=== PATIENT | male | born 1955 | race Caucasian/White ===

== ENCOUNTER 2017-08-29 07:26 | Outpatient (CLI) | payer BC ==
[2017-08-29 13:36] LABS: ALBUMIN 4.2 g/dL (3.2-5.5); ALBUMIN/GLOBULIN RATIO 1.4 (1.0-2.2); ALKALINE PHOSPHATASE 54 IU/L (42-121); ALT ALANINE AMINOTRANSFERASE 28 IU/L (10-60); AST ASPARTATE AMINOTRANSFERASE 46 IU/L (10-42); BILIRUBIN,TOTAL 0.9 mg/dL (0.2-1.0); BUN - BLOOD UREA NITROGEN 22 mg/dL (6-20); CALCIUM 9.2 mg/dL (8.5-10.3); CARBON DIOXIDE - CO2 28 mmol/L (21-32); CHLORIDE 103 mmol/L (101-111); CHOLESTEROL 155 mg/dL; CREATININE 0.8 mg/dL (0.6-1.2); GFR - MDRD 98 (>89); GLUCOSE 90 mg/dL (70-100); HDL CHOLESTEROL 39 mg/dL; LDL CHOLESTEROL,CALCULATED 93 mg/dL; LDL/HDL RATIO 2.4 (<3.6); SODIUM 138 mmol/L (135-145); TOTAL PROTEIN 7.3 g/dL (6.7-8.2); VLDL CHOLESTEROL 23 mg/dL
== END 2017-08-29 07:27 ==
LOC: LAB.WCP 07:26
PROVIDERS: ATTEND Family Medicine
DX: Z00.00 Encounter for general adult medical examination without abnormal findings (principal); Z12.5 Encounter for screening for malignant neoplasm of prostate; Z79.899 Other long term (current) drug therapy; E78.9 Disorder of lipoprotein metabolism, unspecified; I10 Essential (primary) hypertension
CPT/HCPCS: 36415; 80053; 80061; 83721; 84153

== ENCOUNTER 2017-09-18 09:40 | Outpatient (CLI) | payer BC ==
[2017-09-19 11:11] LABS: HEPATITIS C ANTIBODY NON-REACTIVE (NON-REACTIVE)
[2017-09-19 11:12] LABS: HEPATITIS B SURFACE ANTIGEN NON-REACTIVE (NON-REACTIVE)
== END 2017-09-18 09:41 | disposition home or self-care (01) ==
LOC: LAB.WCP 09:40
PROVIDERS: ATTEND Family Medicine
DX: R74.8 Abnormal levels of other serum enzymes (principal)
CPT/HCPCS: 36415; 86317; 86803; 87340

== ENCOUNTER 2017-10-12 08:12 | Outpatient (CLI) | payer BC ==
[2017-10-12 12:39] LABS: ALBUMIN 4.1 g/dL (3.2-5.5); BILIRUBIN,DIRECT 0.1 mg/dL (0.1-0.5); TOTAL PROTEIN 7.3 g/dL (6.7-8.2)
== END 2017-10-12 08:13 ==
LOC: LAB.WCP 08:12
PROVIDERS: ATTEND Family Medicine
DX: R74.8 Abnormal levels of other serum enzymes (principal)
CPT/HCPCS: 36415; 80076

== ENCOUNTER 2018-12-24 08:00 | Outpatient (CLI) | payer BC ==
[2018-12-24 12:24] LABS: BASOPHILS # (AUTO) 0.1 10^3/uL (0.0-0.1); BASOPHILS % (AUTO) 0.9 %; EOSINOPHILS # (AUTO) 0.1 10^3/uL (0.0-0.7); HGB - HEMOGLOBIN 15.5 g/dL (14.0-18.0); LYMPHOCYTES # (AUTO) 1.7 10^3/uL (1.5-3.5); LYMPHOCYTES % (AUTO) 25.7 %; MEAN CORPUSCULAR HEMOGLOBIN 29.4 pg (27.0-31.0); MEAN CORPUSCULAR HGB CONC 33.3 g/dL (32.0-36.0); MEAN CORPUSCULAR VOLUME 88.3 fL (80.0-94.0); MEAN PLATELET VOLUME 11.1 fL (7.4-11.4); MONOCYTES # (AUTO) 0.6 10^3/uL (0.0-1.0); MONOCYTES % (AUTO) 9.2 %; NEUTROPHILS # (AUTO) 4.2 10^3/uL (1.5-6.6); NEUTROPHILS % (AUTO) 62.8 %; PLT - PLATELET COUNT 247 10^3/uL (130-450); RED BLOOD COUNT 5.28 10^6/uL (4.70-6.10); RED CELL DISTRIBUTION WIDTH 12.8 % (12.0-15.0); WHITE BLOOD COUNT 6.7 x10^3/uL (4.8-10.8)
[2018-12-24 13:15] LABS: ALBUMIN 4.3 g/dL (3.2-5.5); ALBUMIN/GLOBULIN RATIO 1.5 (1.0-2.2); ALKALINE PHOSPHATASE 58 IU/L (42-121); ALT ALANINE AMINOTRANSFERASE 24 IU/L (10-60); AST ASPARTATE AMINOTRANSFERASE 39 IU/L (10-42); BILIRUBIN,TOTAL 0.9 mg/dL (0.2-1.0); BUN - BLOOD UREA NITROGEN 21 mg/dL (6-20); CALCIUM 9.2 mg/dL (8.5-10.3); CARBON DIOXIDE - CO2 30 mmol/L (21-32); CHLORIDE 104 mmol/L (101-111); CHOL/HDL RATIO 4.9 (<5.0); CHOLESTEROL 175 mg/dL; CREATININE 0.9 mg/dL (0.6-1.2); GFR - MDRD 86 (>89); GLUCOSE 97 mg/dL (70-100); HDL CHOLESTEROL 36 mg/dL; LDL CHOLESTEROL,CALCULATED 110 mg/dL; LDL/HDL RATIO 3.1 (<3.6); SODIUM 141 mmol/L (135-145); TOTAL PROTEIN 7.2 g/dL (6.7-8.2); VLDL CHOLESTEROL 29 mg/dL
== END 2018-12-24 23:59 | disposition home or self-care (01) ==
LOC: LAB.WCP 08:00
PROVIDERS: ATTEND Family Medicine
DX: R74.8 Abnormal levels of other serum enzymes (principal); I10 Essential (primary) hypertension; E78.5 Hyperlipidemia, unspecified
CPT/HCPCS: 36415; 80053; 80061; 83721; 84443; 85025

== ENCOUNTER 2019-07-13 19:00 | Observation (INO) | payer BC ==
[2019-07-13] MEDS ORDERED: ONDANSETRON 4 MG/2 ML VIAL IVP STA (19:18)
[2019-07-13] MEDS ORDERED: HYDROmorphone 1 MG/ML CARPUJECT IVP STA ×2 (19:18→20:21)
[2019-07-13] MEDS ORDERED: SODIUM CHLORIDE 0.9% 1,000 ML IV ONE (19:18)
--- NOTE | 2019-07-13 19:22 | ED Physician Documentation ---
PD HPI ABD PAIN - Stated complaint Stated Complaint: ABD PX, NAUSEA - Chief complaint Chief Complaint: Abd Pain - History obtained from History obtained from: Patient (This is a very healthy 64-year-old gentleman with no he abdominal surgeries. He developed abdominal pain in the low abdomen after eating fast food yesterday in the midday. Since then pain is been progressive and he could not sleep last night because of it. He denies nausea but eating does make the pain worse. He had a normal bowel movement but feels like there is still a lot of lower abdominal pressure. He does not remember exactly when his last colonoscopy was, but it was "normal." I asked him if he had diverticula and he did not endorse that.) Review of Systems Ten Systems: 10 systems reviewed and negative Constitutional: reports: Chills. denies: Fever (He was not aware that he had a fever) Nose: denies: Rhinorrhea / runny nose, Foreign Body Throat: denies: Dental pain / toothache, Sore throat Cardiac: denies: Chest pain / pressure, Palpitations Respiratory: denies: Dyspnea PD PAST MEDICAL HISTORY - Past Medical History Past Medical History: Yes Cardiovascular: Hypertension ("Borderline hypertension") - Present Medications Home Medications: Ambulatory Orders Medication Instructions Recorded Confirmed Bp Medication 07/13/19 - Allergies Allergies/Adverse Reactions: Allergies Allergy/AdvReac Type Severity Reaction Status Date / Time No Known Drug Allergies Allergy Verified 07/13/19 19:08 - Social History Does the pt smoke?: No - Family History Family history: reports: Non contributory PD ED PE NORMAL - Vitals Vital signs reviewed: Yes - General General: Alert and oriented X 3, No acute distress - HEENT HEENT: PERRL, EOMI - Neck Neck: Supple, no meningeal sign, No bony TTP - Cardiac Cardiac: RRR, No murmur - Respiratory Respiratory: No respiratory distress, Clear bilaterally - Abdomen Abdomen: Normal bowel sounds, Soft, Other (Quite tender in the low abdomen, I think left a little more than right. He does have rebound tenderness. He has an umbilical hernia which is protruding but nontender and he said it is not protruding any more than normal.) - Back Back: No CVA TTP, No spinal TTP - Derm Derm: Normal color, Warm and dry - Extremities Extremities: No edema, No calf tenderness / cord - Neuro Neuro: Alert and oriented X 3, Normal speech Results - Vitals Vitals: Vital Signs - 24 hr 07/13/19 07/13/19 07/13/19 19:05 21:39 21:47 Temperature 38.4 C H 38.9 C H Heart Rate 117 H 103 H Respiratory 18 18 Rate Blood Pressure 147/82 H 135/87 H O2 Saturation 95 93 Oxygen O2 Source Room air - Labs Labs: Laboratory Tests 07/13/19 07/13/19 07/13/19 19:25 19:25 19:25 WBC 19.0 H RBC 5.39 Hgb 16.1 Hct 46.0 MCV 85.3 MCH 29.9 MCHC 35.0 RDW 12.7 Plt Count 248 MPV 10.6 Neut # (Auto) 16.7 H Lymph # (Auto) 1.0 L [place] # (Auto) 1.1 H Eos # (Auto) 0.0 Baso # (Auto) 0.1 Absolute Nucleated RBC 0.00 Nucleated RBC % 0.0 Sodium 133 L Potassium 3.4 L Chloride 98 L Carbon Dioxide 23 Anion Gap 12.0 BUN 20 Creatinine 0.9 Estimated GFR (MDRD) 85 L Glucose 171 H Lactic Acid 1.2 Calcium 9.0 Total Bilirubin 1.9 H AST 39 ALT 25 Alkaline Phosphatase 60 Total Protein 7.5 Albumin 4.4 Globulin 3.1 Albumin/Globulin Ratio 1.4 Lipase 25 - Rads (name of study) CT abdomen and pelvis Radiology: EMP read contemporaneously (Uncomplicated appendicitis. Note made of liver and kidney lesions needing follow-up with MRI. This was discussed with the patient. I also went out to the 's car in the parking lot (no visitors due to coronavirus) and she was given a copy of the CAT scan read.) PD MEDICAL DECISION MAKING - ED course ED course: 64-year-old gentleman presents with lower abdominal pain and fever of a days duration. Differential includes both appendicitis and diverticulitis. He was febrile. White count was 19,000. CT showing uncomplicated appendicitis as well as incidental findings discussed with patient and , need for follow-up on these issues was stressed. Spoke with Dr. Garcia, the on-call surgeon who will be in to see the patient. Charleen caal after discussion. Departure - Departure Disposition: ED Place in Observation Clinical Impression: Appendicitis, Liver mass, Left renal mass Condition: Stable
[2019-07-13] MEDS ORDERED: IOVERSOL 320 100 ML VIAL IVP ONE ×2 (19:30→20:56)
[2019-07-13 19:37] LABS: BASOPHILS # (AUTO) 0.1 10^3/uL (0.0-0.1); BASOPHILS % (AUTO) 0.3 %; EOSINOPHILS % (AUTO) 0.1 %; HGB - HEMOGLOBIN 16.1 g/dL (14.0-18.0); LYMPHOCYTES % (AUTO) 5.3 %; MEAN CORPUSCULAR HEMOGLOBIN 29.9 pg (27.0-31.0); MEAN CORPUSCULAR VOLUME 85.3 fL (80.0-94.0); MEAN PLATELET VOLUME 10.6 fL (7.4-11.4); MONOCYTES # (AUTO) 1.1 10^3/uL (0.0-1.0); MONOCYTES % (AUTO) 5.5 %; NEUTROPHILS # (AUTO) 16.7 10^3/uL (1.5-6.6); NEUTROPHILS % (AUTO) 88.2 %; PLT - PLATELET COUNT 248 10^3/uL (130-450); RED BLOOD COUNT 5.39 10^6/uL (4.70-6.10); RED CELL DISTRIBUTION WIDTH 12.7 % (12.0-15.0)
[2019-07-13 19:52] LABS: ALBUMIN 4.4 g/dL (3.2-5.5); ALBUMIN/GLOBULIN RATIO 1.4 (1.0-2.2); BILIRUBIN,TOTAL 1.9 mg/dL (0.2-1.0); CREATININE 0.9 mg/dL (0.6-1.2); TOTAL PROTEIN 7.5 g/dL (6.7-8.2)
--- NOTE | 2019-07-13 21:30 | CT Report ---
Reason: IV only, low abd pain Procedure Date: 07/13/2019 Accession Number: [id number] / [id number] Procedure: CT - Abdomen/Pelvis W CPT Code: Final Report FULL RESULT: EXAM: CT ABDOMEN AND PELVIS EXAM DATE: 07/13/2019 08:54 PM. CLINICAL HISTORY: IV only, low abdominal pain. COMPARISONS: None. TECHNIQUE: Routine helical CT imaging was performed through the abdomen and pelvis. IV contrast: 100 mL opti 320 AT 2 mL/Sec with 70 second delay. Low. Enteric contrast: No. Reconstructions: Coronal and sagittal. In accordance with CT protocol optimization, one or more of the following dose reduction techniques were utilized for this exam: automated exposure control, adjustment of mA and/or KV based on patient size, or use of iterative reconstructive technique. FINDINGS: ABDOMEN: Liver: There is a heterogeneous nodular appearing partly exophytic arising abnormality within the inferior portion of segment 4B measuring 1.8 x 2.3 x 2.0 cm (image 28 series 3). There are two additional subcentimeter nonspecific low-density foci within superior portion of segment 7/8 as well as within the central portion of segment 4A/B. These are difficult to characterize due to their small size. Stomach/Distal Esophagus: Small hiatal hernia. Gallbladder: No significant abnormality. Bile Ducts: No significant abnormality. Pancreas: No significant abnormality. Spleen: No significant abnormality. Kidneys: There is a low-density lesion arising quickly from the left mid kidney measuring 2.8 x 2.9 cm (image 34 series3). Internal density measures 27 HU (image 35 series 3). This is difficult to fully characterize on this exam. No kidney stone or hydronephrosis. No definite suspicious renal mass. Adrenals: No significant abnormality. Bowel: No obstruction. Average fecal residual. Mild reactive wall thickening of the terminal ileum within the right lower quadrant. Moderate descending and proximal sigmoid diverticulosis. Appendix: Appendix is dilated measuring 13 mm. There is periappendiceal stranding. Lymph Nodes: No pathologically enlarged nodes. Vasculature: Normal caliber aorta. Moderate calcific aortic atherosclerosis. Fluid: No significant free fluid. Abdominal Wall: Small fat-containing umbilical hernia. Other: No significant abnormality. PELVIS: Prostate and Seminal Vesicles: No significant abnormality. Bladder: No significant abnormality. Lymph Nodes: No pathologically enlarged nodes. Fluid: Trace free fluid in the pelvis. Other: Small bilateral fat-containing inguinal hernias. BONES: No suspicious bony lesions. LOWER CHEST: No significant consolidation or effusion. IMPRESSION: 1. Acute appendicitis without evidence of perforation or abscess. 2. There is a 2.9 x 2.8 cm low-density lesion arising from the posterior portion of the left mid kidney measuring 27 HU in density. This is indeterminate. This could be further assessed on the below recommended MRI examination. 3. Indeterminate liver nodular abnormality within the inferior portion of segment 4B, with a partly exophytic appearance. This measures 1.8 x 2.0 x 2.3 cm. This could be further assessed with a nonemergent outpatient MRI of the abdomen without and with contrast. This MRI could also assess the above described renal lesion. RADIA
[2019-07-13] MEDS ORDERED: PIPERACILLIN/TAZOBACTAM 3.375 GM in SODIUM CHLORIDE 0.9% MINIBAG 100 ML IV STA (21:37)
[2019-07-13] MEDS ORDERED: ACETAMINOPHEN 325 MG TABLET PO STA (21:49)
[2019-07-13] MEDS ORDERED: ACETAMINOPHEN 325 MG TABLET PO PRN (21:59)
[2019-07-13] MEDS ORDERED: SODIUM CHLORIDE FLUSH 0.9% 10 ML SYRINGE IVP PRN ×2 (21:59)
--- NOTE | 2019-07-13 22:49 | CONSULTATION NOTE ---
Referring Provider Name of Referring Provider:: MD Rochelle (ED) Consult Date: 07/13/19 Chief Complaint - Chief Complaint Chief Complaint: abd pain History of Present Illness - History of Present Illness HPI Comment/Other: Pleasant 64yo M in good health presents with day and a half of increasing abdominal pain. Started around his umbilicus yesterday afternoon and has worsened. No significant nausea, no dysuria. He has little appetite and has not taken in much water so has not urinated much. He is febrile and has a leukocytosis on admission. CT shows appendicitis plus incidental findings. Exam is consistent with appendicitis; also noted is a small umbilical hernia. He has had no previous abd surgeries. He had achilles tendon surgery this past fall and had no issues with anesthesia or bleeding. No SOB walking up a flight of stairs. No known issues with narcotics. History - Past Medical History Cardiovascular: reports: Hypertension ("Borderline hypertension") - Past Surgical History Ortho: reports: Other (achilles tendon (Dec 2018)) Meds/Allgy - Home Medications Home Medications: Ambulatory Orders Medication Instructions Recorded Confirmed Bp Medication 07/13/19 - Allergies Allergies/Adverse Reactions: Allergies Allergy/AdvReac Type Severity Reaction Status Date / Time No Known Drug Allergies Allergy Verified 07/13/19 19:08 Review of Systems - Constitutional Constitutional: reports: Fever, Malaise, Poor appetite - Respiratory Respiratory: denies: SOB at rest, SOB with exertion - Gastrointestinal Gastrointestinal: reports: Abdominal pain. denies: Diarrhea, Nausea, Vomiting - Genitourinary Genitourinary: denies: Dysuria - All Other Systems All Other Systems: reports: Reviewed and negative Exam - Vital Signs Reviewed Vital Signs: Yes Vital Signs: Vital Signs x48h Temp Pulse Resp BP Pulse Ox 07/13/19 21:47 38.9 C H 07/13/19 21:39 103 H 18 135/87 H 93 07/13/19 19:05 38.4 C H 117 H 18 147/82 H 95 - Physical Exam Comments/Other: AAO, NAD, male of healthy weight EOMI, MMM, no scleral icterus unlabored RA soft, non-distended, moderate ttp RLQ and suprapubic area, small fat-containing umbilical hernia MAEW visible skin warm and dry Conclusion and Plan - Lab Results Laboratory Results 07/13/19 19:25: Lactic Acid 1.2 07/13/19 19:25: Sodium 133 L, Potassium 3.4 L, Chloride 98 L, Carbon Dioxide 23, Anion Gap 12.0, BUN 20, Creatinine 0.9, Estimated GFR (MDRD) 85 L, Glucose 171 H, Calcium 9.0, Total Bilirubin 1.9 H, AST 39, ALT 25, Alkaline Phosphatase 60, Total Protein 7.5, Albumin 4.4, Globulin 3.1, Albumin/Globulin Ratio 1.4, Lipase 25 07/13/19 19:25: WBC 19.0 H, RBC 5.39, Hgb 16.1, Hct 46.0, MCV 85.3, MCH 29.9, MCHC 35.0, RDW 12.7, Plt Count 248, MPV 10.6, Neut # (Auto) 16.7 H, Lymph # (Auto) 1.0 L, [place] # (Auto) 1.1 H, Eos # (Auto) 0.0, Baso # (Auto) 0.1, Absolute Nucleated RBC 0.00, Nucleated RBC % 0.0 - Diagnostic Imaging Results Diagnostic Imaging Results: positive: Final report reviewed, Read contemporaneously - Diagnosis Diagnosis: appendicitis - Plan Plan: - plan for OR in AM --> all R/B/A discussed and pt wishes to proceed --> also discussed repairing his small umbilical hernia primarily and he would like this done - IV Zosyn - CLD now, NPO at midnight for procedure - MIVFs - prn antiemetics and pain meds - antipyretic prn for ongoing fevers - Hyperbilirubinemia: CMP in AM to follow, may be dehydration/ biliary stasis related - Pt has incidental findings of hepatic and renal cysts on his CT and have counseled him to FU with his PCP for this
[2019-07-13] MEDS: HYDROmorphone 0.5 MG/0.5 ML SYRINGE IVP PRN (23:05)
[2019-07-13] MEDS: SODIUM CHLORIDE 0.9% 1,000 ML IV SCH (23:15)
[2019-07-13 23:33] LABS: BILIRUBIN,URINE NEGATIVE (NEGATIVE); GLUCOSE, URINE (UA) NEGATIVE (NEGATIVE); KETONES,URINE (UA) NEGATIVE (NEGATIVE); LEUKOCYTE ESTERASE, URINE NEGATIVE (NEGATIVE); NITRITE,URINE NEGATIVE (NEGATIVE); OCCULT BLOOD,URINE SMALL (NEGATIVE); PROTEIN,URINE NEGATIVE (NEGATIVE); UROBILINOGEN,URINE 0.2 (NORMAL) E.U./dL (NORMAL)
[2019-07-13 23:34] LABS: CLARITY,URINE CLEAR (CLEAR)
[2019-07-13 23:44] LABS: BACTERIA,URINE None Seen /HPF (None Seen); RBC,URINE 0-5 /HPF (0-5); SQUAMOUS EPITHELIAL CELL,UR RARE Squamous (<= Few)
[2019-07-14] MEDS: IBUPROFEN 600 MG TABLET PO SCH ×3 (00:30→13:48)
[2019-07-14] MEDS ORDERED: SODIUM CHLORIDE FLUSH 0.9% 10 ML SYRINGE IVP SCH (01:00)
[2019-07-14] MEDS: SODIUM CHLORIDE FLUSH 0.9% 10 ML SYRINGE IVP SCH ×2 (02:15→08:00)
[2019-07-14] MEDS: PIPERACILLIN/TAZOBACTAM 3.375 GM in SODIUM CHLORIDE 0.9% MINIBAG 100 ML IV SCH ×2 (02:15→09:07)
[2019-07-14] MEDS: HYDROmorphone 0.5 MG/0.5 ML SYRINGE IVP PRN ×2 (02:15→05:02)
[2019-07-14 06:23] LABS: ALBUMIN 3.6 g/dL (3.2-5.5); ALBUMIN/GLOBULIN RATIO 1.4 (1.0-2.2); BILIRUBIN,TOTAL 1.6 mg/dL (0.2-1.0); CALCIUM 8.1 mg/dL (8.5-10.3); CREATININE 0.9 mg/dL (0.6-1.2); TOTAL PROTEIN 6.1 g/dL (6.7-8.2)
--- NOTE | 2019-07-14 07:24 | PHARMACY PROGRESS NOTE ---
- Best Possible Medication History Admit Date and Time: 07/13/19 3955 Processed by: Pharmacy Medication History completed: Yes Patient Interview: Completed Secondary Source(s): Physician records, Pharmacy records, Insurance records As the person ultimately responsible for medication therapy, providers are able to order a medication from an existing home medication list in [facility] via the "Reconcile Routine" prior to Confirmation of that medication by customer support executive. Such practice is discouraged except when the physician, in their clinical judgment, deems that a medical need exists for a medication without regard to previous use.
--- NOTE | 2019-07-14 08:26 | ANESTHESIA ---
Pre-Anesthesia VS, & Labs - Diagnosis Diagnosis appendicitis umbilical hernia - Procedure laparoscopic appendectomy, umbilical hernia repair Vital Signs: Temp Pulse Resp BP Pulse Ox 37.1 C 86 18 131/76 H 93 07/14/19 05:00 07/14/19 05:00 07/14/19 05:00 07/14/19 05:00 07/14/19 05:00 Height 5 ft 11 in Weight (kg) 88 kg Body Mass Index 27.0 - Lab Results Current Lab Results: Laboratory Tests 07/14/19 05:45: Sodium 134 L, Potassium 3.4 L, Chloride 100 L, Carbon Dioxide 28, Anion Gap 6.0, BUN 19, Creatinine 0.9, Estimated GFR (MDRD) 85 L, Glucose 120 H, Calcium 8.1 L, Total Bilirubin 1.6 H, AST 33, ALT 20, Alkaline Phosphatase 52, Total Protein 6.1 L, Albumin 3.6, Globulin 2.5, Albumin/Globulin Ratio 1.4 07/13/19 19:25: Lactic Acid 1.2 07/13/19 19:25: Sodium 133 L, Potassium 3.4 L, Chloride 98 L, Carbon Dioxide 23, Anion Gap 12.0, BUN 20, Creatinine 0.9, Estimated GFR (MDRD) 85 L, Glucose 171 H , Calcium 9.0, Total Bilirubin 1.9 H, AST 39, ALT 25, Alkaline Phosphatase 60, Total Protein 7.5, Albumin 4.4, Globulin 3.1, Albumin/Globulin Ratio 1.4, Lipase 25 07/13/19 19:25: WBC 19.0 H, RBC 5.39, Hgb 16.1, Hct 46.0, MCV 85.3, MCH 29.9, MCHC 35.0, RDW 12.7, Plt Count 248, MPV 10.6, Neut # (Auto) 16.7 H, Lymph # (Auto) 1.0 L, [place] # (Auto) 1.1 H, Eos # (Auto) 0.0, Baso # (Auto) 0.1, Absolute Nucleated RBC 0.00, Nucleated RBC % 0.0 Lab results reviewed: Yes Fish Bones: 07/13/19 19:25 07/14/19 05:45 Home Medications and Allergies Home Medications: Ambulatory Orders Losartan/Hydrochlorothiazide [Losartan-Hctz 100-12.5 mg Tab] 1 tab PO DAILY 07/14/19 Sildenafil Citrate 50 mg PO PRN PRN 07/14/19 Active Medications Acetaminophen (Tylenol) 325 mg PO Q4HR PRN PRN Reason: Pain or Fever > 38C (100.4F) Hydromorphone HCl (Dilaudid Inj Syringe) 0.5 mg IVP Q2H PRN PRN Reason: PAIN Last Admin: 07/14/19 05:02 Dose: 0.5 mg Piperacillin Sod/Tazobactam (Sod 3.375 gm/ Sodium Chloride) 100 mls @ 25 mls/hr IV Q8H [facility] Last Infusion: 07/14/19 06:20 Dose: Infused Sodium Chloride (Normal Saline 0.9%) 1,000 mls @ 100 mls/hr IV .Q10H [facility] Last Admin: 07/13/19 23:15 Dose: 100 mls/hr Ibuprofen (Motrin) 600 mg PO Q6HR [facility] Last Admin: 07/14/19 07:02 Dose: Not Given Sodium Chloride (Normal Saline Flush 0.9%) 10 ml IVP 0100,0900,1700 [facility] Last Admin: 07/14/19 08:00 Dose: Not Given Sodium Chloride (Normal Saline Flush 0.9%) 10 ml IVP PRN PRN PRN Reason: NEEDED PER PROVIDER ORDERS Last Admin: 07/13/19 23:08 Dose: 10 ml Losartan/Hydrochlorothiazide [Losartan-Hctz 100-12.5 mg Tab] 1 tab PO DAILY 07/14/19 Sildenafil Citrate 50 mg PO PRN PRN 07/14/19 Allergies/Adverse Reactions: Allergies Allergy/AdvReac Type Severity Reaction Status Date / Time No Known Drug Allergies Allergy Verified 07/13/19 19:08 Anes History & Medical History - Anesthetic History Anesthesia Complications: reports: No previous complications Family history of Anesthesia Complications: Denies Family history of Malignant Hyperthermia: Denies - Medical History Cardiovascular: reports: Hypertension Pulmonary: reports: None Urinary: reports: None, Other (ED) Neuro: reports: None Musculoskeletal: reports: None Endocrine/Autoimmune: reports: None Blood Disorders: reports: None Skin: reports: None Smoking Status: Never smoker - Surgical History Orthopedic: Other Exam General: Alert, Oriented x3, Cooperative Dental: WNL Mouth Opening: Greater than 4 Fingerbreadths Neck Mobility: Normal Mallampati classification: I Thyromental Distance: greater than 6 cm Respiratory: Lungs clear Cardiovascular: Regular rate Plan Anesthesia Type: General Consent for Procedure(s) Verified and Reviewed: Yes Code Status: Attempt Resuscitation ASA classification: 2-Mild systemic disease Is this case an emergency?: Yes
[2019-07-14] MEDS ORDERED: LIDOCAINE 1%-EPI 1:100000 20 ML MDV ONE (08:46)
[2019-07-14] MEDS ORDERED: BUPIVACAINE 0.5% PF 30 ML VIAL ONE (08:47)
--- NOTE | 2019-07-14 08:50 | PROVIDER PROGRESS NOTE ---
Subjective - General Admit Date: 07/13/19 - Other Other Information/Narrative: OR today for surgery. No issues overnight. Objective - Patient Data Reviewed Vital Signs: Yes Vital Signs: Vital Signs x48h Temp Pulse Resp BP Pulse Ox 07/14/19 08:39 37.4 C 89 18 120/69 94 07/14/19 05:00 37.1 C 86 18 131/76 H 93 Weight: Weight 07/12/19 07/13/19 07/14/19 23:59 23:59 23:59 Weight (kg) 88 kg Intake & Output: Intake and Output Totals x24h 07/12/19 07/13/19 07/14/19 23:59 23:59 23:59 Intake Total 1100 100 Balance 1100 100 - Lab Results Lab Results: 07/13/19 19:25 07/14/19 05:45 Other Lab Results: Lab Results x24hrs 07/14/19 07/13/19 07/13/19 Range/Units 05:45 23:00 19:25 WBC (4.8-10.8) x10^3/uL RBC (4.70-6.10) 10^6/uL Hgb (14.0-18.0) g/dL Hct (42.0-52.0) % MCV (80.0-94.0) fL MCH (27.0-31.0) pg MCHC (32.0-36.0) g/dL RDW (12.0-15.0) % Plt Count (130-450) 10^3/uL MPV (7.4-11.4) fL Neut # (Auto) (1.5-6.6) 10^3/uL Lymph # (Auto) (1.5-3.5) 10^3/uL [place] # (Auto) (0.0-1.0) 10^3/uL Eos # (Auto) (0.0-0.7) 10^3/uL Baso # (Auto) (0.0-0.1) 10^3/uL Absolute Nucleated RBC x10^3/uL Nucleated RBC % /100WBC Sodium 134 L (135-145) mmol/L Potassium 3.4 L (3.5-5.0) mmol/L Chloride 100 L (101-111) mmol/L Carbon Dioxide 28 (21-32) mmol/L Anion Gap 6.0 (6-13) BUN 19 (6-20) mg/dL Creatinine 0.9 (0.6-1.2) mg/dL Estimated GFR (MDRD) 85 L (>89) Glucose 120 H (70-100) mg/dL Lactic Acid 1.2 (0.5-2.2) mmol/L Calcium 8.1 L (8.5-10.3) mg/dL Total Bilirubin 1.6 H (0.2-1.0) mg/dL AST 33 (10-42) IU/L ALT 20 (10-60) IU/L Alkaline Phosphatase 52 (42-121) IU/L Total Protein 6.1 L (6.7-8.2) g/dL Albumin 3.6 (3.2-5.5) g/dL Globulin 2.5 (2.1-4.2) g/dL Albumin/Globulin Ratio 1.4 (1.0-2.2) Lipase (22-51) U/L Urine Color YELLOW Urine Clarity CLEAR (CLEAR) Urine pH 5.0 (5.0-7.5) PH Ur Specific [place] 1.010 (1.002-1.030) Urine Protein NEGATIVE (NEGATIVE) mg/dL Urine Glucose (UA) NEGATIVE (NEGATIVE) mg/dL Urine Ketones NEGATIVE (NEGATIVE) mg/dL Urine Occult Blood SMALL H (NEGATIVE) Urine Nitrite NEGATIVE (NEGATIVE) Urine Bilirubin NEGATIVE (NEGATIVE) Urine Urobilinogen 0.2 (NORMAL) (NORMAL) E.U./dL Ur Leukocyte Esterase NEGATIVE (NEGATIVE) Urine RBC 0-5 (0-5) /HPF Urine WBC 0-3 (0-3) /HPF Ur Squamous Epith Cells RARE Squamous (<= Few) Urine Bacteria None Seen (None Seen) /HPF Ur Microscopic Review INDICATED Urine Culture Comments NOT INDICATED 07/13/19 07/13/19 Range/Units 19:25 19:25 WBC 19.0 H (4.8-10.8) x10^3/uL RBC 5.39 (4.70-6.10) 10^6/uL Hgb 16.1 (14.0-18.0) g/dL Hct 46.0 (42.0-52.0) % MCV 85.3 (80.0-94.0) fL MCH 29.9 (27.0-31.0) pg MCHC 35.0 (32.0-36.0) g/dL RDW 12.7 (12.0-15.0) % Plt Count 248 (130-450) 10^3/uL MPV 10.6 (7.4-11.4) fL Neut # (Auto) 16.7 H (1.5-6.6) 10^3/uL Lymph # (Auto) 1.0 L (1.5-3.5) 10^3/uL [place] # (Auto) 1.1 H (0.0-1.0) 10^3/uL Eos # (Auto) 0.0 (0.0-0.7) 10^3/uL Baso # (Auto) 0.1 (0.0-0.1) 10^3/uL Absolute Nucleated RBC 0.00 x10^3/uL Nucleated RBC % 0.0 /100WBC Sodium 133 L (135-145) mmol/L Potassium 3.4 L (3.5-5.0) mmol/L Chloride 98 L (101-111) mmol/L Carbon Dioxide 23 (21-32) mmol/L Anion Gap 12.0 (6-13) BUN 20 (6-20) mg/dL Creatinine 0.9 (0.6-1.2) mg/dL Estimated GFR (MDRD) 85 L (>89) Glucose 171 H (70-100) mg/dL Lactic Acid (0.5-2.2) mmol/L Calcium 9.0 (8.5-10.3) mg/dL Total Bilirubin 1.9 H (0.2-1.0) mg/dL AST 39 (10-42) IU/L ALT 25 (10-60) IU/L Alkaline Phosphatase 60 (42-121) IU/L Total Protein 7.5 (6.7-8.2) g/dL Albumin 4.4 (3.2-5.5) g/dL Globulin 3.1 (2.1-4.2) g/dL Albumin/Globulin Ratio 1.4 (1.0-2.2) Lipase 25 (22-51) U/L Urine Color Urine Clarity (CLEAR) Urine pH (5.0-7.5) PH Ur Specific [place] (1.002-1.030) Urine Protein (NEGATIVE) mg/dL Urine Glucose (UA) (NEGATIVE) mg/dL Urine Ketones (NEGATIVE) mg/dL Urine Occult Blood (NEGATIVE) Urine Nitrite (NEGATIVE) Urine Bilirubin (NEGATIVE) Urine Urobilinogen (NORMAL) E.U./dL Ur Leukocyte Esterase (NEGATIVE) Urine RBC (0-5) /HPF Urine WBC (0-3) /HPF Ur Squamous Epith Cells (<= Few) Urine Bacteria (None Seen) /HPF Ur Microscopic Review Urine Culture Comments - Current Medications Current Medications: Current Medications Generic Name Dose Route Start Last Admin Trade Name Freq PRN Reason Stop Dose Admin Hydromorphone HCl 0.5 mg 07/13/19 21:59 07/14/19 05:02 Dilaudid Inj Syringe IVP 0.5 mg Q2H PRN Administration PAIN Piperacillin Sod/Tazobactam 100 mls @ 25 mls/hr 07/14/19 02:00 07/14/19 06:20 Sod 3.375 gm/ Sodium Chloride IV Infused Q8H SHERRY Infusion Sodium Chloride 1,000 mls @ 100 mls/hr 07/13/19 22:00 07/13/19 23:15 Normal Saline 0.9% IV 100 mls/hr .Q10H SHERRY Administration Ibuprofen 600 mg 07/14/19 00:00 07/14/19 07:02 Motrin PO Not Given Q6HR SHERRY Sodium Chloride 10 ml 07/14/19 01:00 07/14/19 08:00 Normal Saline Flush 0.9% IVP Not Given 0100,0900,1700 SHERRY Sodium Chloride 10 ml 07/13/19 21:59 07/13/19 23:08 Normal Saline Flush 0.9% IVP 10 ml PRN PRN Administration NEEDED PER PROVIDER ORDERS - Physical Exam Comments/Other: AAO, NAD unlabored RA MAEW Impression/Plan - Problem List Problem List: - OR today for lap appendectomy --> home later if doing well and no perforation or complicating factors intra-op - TB down but still above normal; no CT, exam, or history suggestion of biliary issues --> check as outpt then workup if not normalized - will send CT to PCP to review and plan follow up imaging/ workup - precautions reviewed for post op care
[2019-07-14] MEDS ORDERED: KETOROLAC 30 MG/ML VIAL IVP ONE (09:04)
[2019-07-14] MEDS ORDERED: GLYCOPYRROLATE 1 MG/5 ML VIAL IVP ONE (09:04)
[2019-07-14] MEDS ORDERED: NEOSTIGMINE 1 MG/1 ML 10 ML MDV IVP ONE (09:04)
[2019-07-14] MEDS ORDERED: ONDANSETRON 4 MG/2 ML VIAL IVP ONE (09:04)
[2019-07-14] MEDS ORDERED: PROPOFOL 200 MG/20 ML VIAL IVP ONE ×2 (09:04)
[2019-07-14] MEDS ORDERED: ROCURONIUM 50 MG/5 ML VIAL IVP ONE (09:04)
[2019-07-14] MEDS ORDERED: fentaNYL 250 MCG/5 ML VIAL IVP ONE (09:04)
[2019-07-14] MEDS ORDERED: DEXAMETHASONE 4 MG/ML VIAL IVP ONE (09:04)
[2019-07-14] MEDS ORDERED: MIDAZOLAM 2 MG/2 ML VIAL IVP ONE (09:04)
[2019-07-14] MEDS ORDERED: LIDOCAINE 1%-EPI 1:100000 30 ML MDV SUBQ ONE ×2 (10:00)
[2019-07-14] MEDS ORDERED: BUPIVACAINE 0.5% PF 30 ML VIAL SUBQ ONE ×2 (10:00)
[2019-07-14] MEDS ORDERED: LACTATED RINGERS 1,000 ML IV ONE ×2 (10:01→11:28)
[2019-07-14] MEDS ORDERED: oxyCODONE 5 MG TABLET PO PRN (11:18)
[2019-07-14] MEDS ORDERED: ONDANSETRON 4 MG/2 ML VIAL IVP PRN (11:18)
[2019-07-14] MEDS ORDERED: HYDROmorphone 0.5 MG/0.5 ML SYRINGE IVP PRN (11:18)
--- NOTE | 2019-07-14 11:26 | OPERATIVE REPORT ---
Operative Report - General Admit Date: 07/13/19 Pre-Op Diagnosis: 1. Appendicitis 2. Umbilical Hernia Procedure Performed: 1. Laparoscopic Lysis of Adhesions 2. Laparoscopic Appendectomy and partial Cecectomy 3. Primary Repair of Umbilical Hernia Post Op Diagnosis: same - Procedure Note Primary Surgeon: MD Gurpreet Anesthesia Provider: Lisa Kent CRNA Anesthesia Technique: General ET tube Pathology: 1. umbilical hernia contents 2. appendix 3. partial cecum Estimated Blood Loss (mL): 5 Indications: 64yo M with appendicitis, pain for 1.5 days prior to admission. Has an incidental umbilical hernia. Plan for surgery after discussion of all risks, benefits, and alternatives. He wishes to proceed. Findings: 1. inflamed appendix, minor purulence but no tino perforation; surrounding adhesions of appendix and cecum to abdominal wall 2. concern for superficial thermal injury during lysis of adhesions so small area partial cecectomy to prevent further breakdown of tissue 3. protruding liver mass (2-3cm) consistent with findings of CT 4. 1cm fat-containing umbilical hernia Complications: concern for thermal injury to cecum during PAXTON so stapled partial cecectomy performed - Other Other Information/Narrative: The patient was taken to the operating room and placed on the operating table in supine position. The abdomen was prepped and draped in sterile fashion and a timeout performed with the team present. Using a 15 blade scalpel after infiltration with local anesthesia, a subumbilical curvilinear incision was made and carried down to the fascia with blunt dissection. The umbilical stalk is bluntly cleared circumferentially with a shlomo clamp and the base exposed and excised to open into the hernia. The hernia is fully exposed and the sac containing fat is widely opened. The sac and contents are removed with cautery and the fascia cleared of sac circumferentially. Stay sutures of 0-Ethibond were placed on either side and the solorio trocar introduced. Once confirmed to be within the peritoneum, the abdomen was insufflated with air. Diagnostic laparoscopy showed no injury from initial trocar placement. Under direct vision and after infiltration with local anesthesia, an additional 5 mm trocar was then placed in the midline just above the pubic hairline and a 5 mm trocar was then placed in the left lower quadrant. The patient was then placed in left side down and in Trendelenberg position. The small bowel was retracted to the left side of the patient. The appendix was identified at the base of the cecum and had no perforation but some purulence was noted along the distal end and mesoappendix. This was grasped with a blunt grasper and a clear base was revealed. However, adhesions tented the cecum and part of the appendix to the abdominal wall so these were carefully taken down with cauterized scissors. A focal area of the cecum had a superficial thermal injury which was minimal but concern for possible further breakdown indicated repair. Using a [place] dissector, a window was made between the mesoappendix and the appendix itself. Using an Endo EVER stapler with a tissue load, the appendix was transected out at the base. Using a vascular load, the mesoappendix was then transected with the Endo EVER stapler as well. This required removing some retroperitoneal attachments of the mesoappendix with cautery. The staple lines were noted to be intact with no evidence of leakage and minimal focal bleeding. A second tissue load was used to divide and remove the small area with cecal injury. The appendix and partial cecum were placed into an EndoCatch retrieval bag and removed through the 12 mm port without any difficulty. The RLQ and pelvis were thoroughly irrigated and suctioned free of fluid. The minimal oozing at the staple line had stopped. The midline incision was closed with the stay sutures previously placed. The remainder of the local anesthesia was injected over each of the fascial incision sites. The secondary trocars were then removed. The abdomen was allowed to desufflate fully. The skin incisions were then closed using 4-0 Monocryl in an interrupted subcuticular fashion with an additional 3-0 vicryl used to re-attach the umbilical stalk. All counts were correct at the end of the procedure. The abdomen was cleaned and dried. Steri strips were placed over the incisions and a pressure dressing applied to the umbilical incision. The patient was awakened and taken to postanesthesia care unit in stable condition.
[2019-07-14] MEDS: SODIUM CHLORIDE 0.9% 1,000 ML IV SCH (13:05)
[2019-07-14 17:48] VITALS: BP 142/76
== END 2019-07-14 17:55 | disposition home or self-care (01) ==
LOC: ED 19:00 → MS2 21:59
PROVIDERS: ADMIT Surgery; ATTEND Surgery
PROC: 0DTJ4ZZ Resection of Appendix, Percutaneous Endoscopic Approach (ICD-10-PCS; principal; 2019-07-14 09:00)
DX: K35.891 Other acute appendicitis without perforation, with gangrene (principal); K42.9 Umbilical hernia without obstruction or gangrene; K66.0 Peritoneal adhesions (postprocedural) (postinfection); I10 Essential (primary) hypertension; R17 Unspecified jaundice; K76.89 Other specified diseases of liver; N28.1 Cyst of kidney, acquired; Z79.899 Other long term (current) drug therapy
CPT/HCPCS: 36415; 44970; 74177; 80053; 81001; 83605; 83690; 85025; 87040; 96361; 96374; 96375; 96376; 99285; A9270; G0378; J1170; J3010; J7120; Q9967; 81003; 87086

== ENCOUNTER 2019-09-19 14:43 | Outpatient (CLI) | payer BC ==
[2019-09-19] MEDS ORDERED: GADOBUTROL 10 MMOL/10 ML VIAL ONE (15:13)
[2019-09-19] MEDS ORDERED: GADOBUTROL 10 MMOL/10 ML VIAL IVP ONE (16:16)
--- NOTE | 2019-09-19 17:38 | MRI Report ---
PROCEDURE: Abdomen W/WO INDICATIONS: Hepatic and renal cysts seen on prior CT. CONTRAST: IV CONTRAST: Gadavist ml: 10 TECHNIQUE: Axial T2, axial T1, and coronal T1 obtained through the abdomen centered through the kidneys. Dynamic coronal ultra fast GE during the administration of contrast; post-contrast axial T1 with fat saturat ion also performed through the kidneys. Diffusion weighted imaging and ADC also performed. COMPARISON: CT abdomen pelvis 07/13/2019. FINDINGS: Image quality: There is motion artifact limiting evaluation. Lung bases: No definite basal pleural effusions. Heart size is normal. Kidneys: The kidneys demonstrate no hydronephrosis. There is an exophytic cyst extending posteriorly from the left kidney measuring up to 3.2 x 2.6 x 2.1 cm. No evidence of internal enhancement identifi ed following contrast administration. Solid organs: Limited evaluation of the liver due to incomplete inclusion on the noncontrast and axia l images demonstrates a septated cyst anteriorly in segment 5 of the right hepatic lobe, measuring up to 1.7 cm. The gallbladder appears within normal limits without gallstones. No biliary ductal dilata tion. No pancreatic duct dilatation. No peripancreatic edema or fluid collections. No adrenal nodules . The spleen is normal in size. Nodes and vessels: No retroperitoneal or mesenteric adenopathy by size criteria. Aorta and inferior vena cava are normal in size. Bowel and peritoneum: Visualized bowel loops are normal in caliber. No free fluid. Bones and soft tissues: No ventral hernias. Bone marrow is normal in overall signal. IMPRESSION: 1. Left renal cyst and right hepatic cyst redemonstrated without evidence of internal enhancement. Reviewed by: Estevan Meneses MD on 09/19/2019 5:36 PM PDT Approved by: Estevan Meneses MD on 09/19/2019 5:36 PM PDT Station ID: [id number]
== END 2019-09-19 14:44 | disposition home or self-care (01) ==
LOC: DI 14:43
PROVIDERS: ATTEND Family Medicine
DX: K76.89 Other specified diseases of liver (principal); N28.1 Cyst of kidney, acquired
CPT/HCPCS: 74183; A9585

== ENCOUNTER 2020-10-17 09:13 | Outpatient (CLI) | payer BC ==
[2020-10-17 13:42] LABS: BASOPHILS # (AUTO) 0.1 10^3/uL (0.0-0.1); BASOPHILS % (AUTO) 0.7 %; EOSINOPHILS # (AUTO) 0.1 10^3/uL (0.0-0.7); EOSINOPHILS % (AUTO) 1.5 %; HCT - HEMATOCRIT 49.3 % (42.0-52.0); HGB - HEMOGLOBIN 17.1 g/dL (14.0-18.0); LYMPHOCYTES % (AUTO) 28.6 %; MEAN CORPUSCULAR HEMOGLOBIN 30.7 pg (27.0-31.0); MEAN CORPUSCULAR HGB CONC 34.7 g/dL (32.0-36.0); MEAN CORPUSCULAR VOLUME 88.5 fL (80.0-94.0); MEAN PLATELET VOLUME 10.8 fL (7.4-11.4); MONOCYTES # (AUTO) 0.6 10^3/uL (0.0-1.0); MONOCYTES % (AUTO) 8.9 %; NEUTROPHILS # (AUTO) 4.2 10^3/uL (1.5-6.6); NEUTROPHILS % (AUTO) 60.2 %; PLT - PLATELET COUNT 258 10^3/uL (130-450); RED BLOOD COUNT 5.57 10^6/uL (4.70-6.10); RED CELL DISTRIBUTION WIDTH 12.7 % (12.0-15.0); WHITE BLOOD COUNT 6.9 x10^3/uL (4.8-10.8)
[2020-10-17 13:54] LABS: ESTIMATED AVERAGE GLUCOSE 117 mg/dL (70-100); HEMOGLOBIN A1c% 5.7 % (4.27-6.07)
[2020-10-17 14:06] LABS: THYROID STIMULATING HORMONE 0.41 uIU/mL (0.34-5.60)
[2020-10-17 14:47] LABS: ALBUMIN 4.8 g/dL (3.2-5.5); ALBUMIN/GLOBULIN RATIO 1.8 (1.0-2.2); ALKALINE PHOSPHATASE 65 IU/L (42-121); ALT ALANINE AMINOTRANSFERASE 22 IU/L (10-60); AST ASPARTATE AMINOTRANSFERASE 38 IU/L (10-42); BILIRUBIN,TOTAL 1.2 mg/dL (0.2-1.0); BUN - BLOOD UREA NITROGEN 22 mg/dL (6-20); CALCIUM 9.5 mg/dL (8.5-10.3); CARBON DIOXIDE - CO2 29 mmol/L (21-32); CHLORIDE 103 mmol/L (101-111); CHOLESTEROL 186 mg/dL; CREATININE 0.9 mg/dL (0.6-1.2); GFR - MDRD 85 (>89); GLUCOSE 95 mg/dL (70-100); HDL CHOLESTEROL 37 mg/dL; LDL CHOLESTEROL,CALCULATED 122 mg/dL; LDL/HDL RATIO 3.3 (<3.6); POTASSIUM 4.2 mmol/L (3.5-5.0); SODIUM 139 mmol/L (135-145); TOTAL PROTEIN 7.4 g/dL (6.7-8.2); TRIGLYCERIDES 137 mg/dL; VLDL CHOLESTEROL 27 mg/dL
== END 2020-10-17 09:14 | disposition home or self-care (01) ==
LOC: LAB.N 09:13
PROVIDERS: ATTEND Internal Medicine
DX: I10 Essential (primary) hypertension (principal); R73.01 Impaired fasting glucose; Z12.5 Encounter for screening for malignant neoplasm of prostate; E78.5 Hyperlipidemia, unspecified
CPT/HCPCS: 36415; 80053; 80061; 83036; 83721; 84153; 84443; 85025

== ENCOUNTER 2021-02-01 08:52 | Day surgery (SDC) | payer BC ==
[2021-02-01] MEDS ORDERED: LACTATED RINGERS 1,000 ML IV ONE (09:05)
--- NOTE | 2021-02-01 09:42 | ANESTHESIA ---
Pre-Anesthesia VS, & Labs - Diagnosis screening - Procedure colonoscopy Vital Signs: Temp Pulse Resp BP Pulse Ox 37.0 C 85 19 146/92 H 94 02/01/21 09:12 02/01/21 09:12 02/01/21 09:12 02/01/21 09:12 02/01/21 09:12 Height: 5 ft 11 in Weight (kg): 89.7 kg Body Mass Index: 27.6 BMI Classification: Overweight - NPO >8 hours - Lab Results Lab results reviewed: Yes Home Medications and Allergies Home Medications: Ambulatory Orders Metoprolol Succinate [Toprol Xl] 1 tab ORAL DAILY 01/29/21 Losartan/Hydrochlorothiazide [Losartan-Hctz 100-12.5 mg Tab] 1 tab PO DAILY 07/14/19 Sildenafil Citrate 50 mg PO PRN PRN 07/14/19 Metoprolol Succinate [Toprol Xl] 1 tab ORAL DAILY 01/29/21 Allergies/Adverse Reactions: Allergies Allergy/AdvReac Type Severity Reaction Status Date / Time No Known Drug Allergies Allergy Verified 07/13/19 19:08 Anes History & Medical History - Anesthetic History Anesthesia Complications: reports: No previous complications - Medical History Cardiovascular: reports: Hypertension Pulmonary: reports: None Gastrointestinal: reports: None Urinary: reports: None, Other Neuro: reports: None Musculoskeletal: reports: None Endocrine/Autoimmune: reports: None Blood Disorders: reports: None Skin: reports: None Smoking Status: Never smoker - Surgical History General: reports: Appendectomy, Colonoscopy Orthopedic: reports: Other Exam General: Alert, Oriented x3, Cooperative, No acute distress Dental: WNL Mouth Openin Fingerbreadth Neck Mobility: Normal Mallampati classification: I Respiratory: Lungs clear Cardiovascular: Regular rate, Normal S1, Normal S2, No murmurs Plan Anesthesia Type: General, Total IV Consent for Procedure(s) Verified and Reviewed: Yes Code Status: Attempt Resuscitation ASA classification: 2-Mild systemic disease Is this case an emergency?: No
[2021-02-01] MEDS ORDERED: LIDOCAINE-MPF 2% 5 ML VIAL ONE (09:53)
[2021-02-01] MEDS ORDERED: PROPOFOL 500 MG/50 ML 500 MG/50 ML VIAL ONE (09:53)
[2021-02-01] MEDS ORDERED: LACTATED RINGERS 300 ML IV ONE (11:18)
[2021-02-01 11:45] VITALS: BP 118/73
== END 2021-02-01 08:53 | disposition home or self-care (01) ==
LOC: SDS 08:52
PROVIDERS: ATTEND Surgery
DX: Z12.11 Encounter for screening for malignant neoplasm of colon (principal); K57.30 Diverticulosis of large intestine without perforation or abscess without bleeding; E78.5 Hyperlipidemia, unspecified; I10 Essential (primary) hypertension; N28.1 Cyst of kidney, acquired; K76.89 Other specified diseases of liver; R73.9 Hyperglycemia, unspecified; Z79.899 Other long term (current) drug therapy
CPT/HCPCS: 45378; J7120

== ENCOUNTER 2022-02-08 08:28 | Outpatient (CLI) | payer BC ==
[2022-02-08 08:52] LABS: BASOPHILS % (AUTO) 0.6 %; EOSINOPHILS # (AUTO) 0.1 10^3/uL (0.0-0.7); HCT - HEMATOCRIT 48.1 % (42.0-52.0); HGB - HEMOGLOBIN 16.1 g/dL (14.0-18.0); LYMPHOCYTES # (AUTO) 1.9 10^3/uL (1.5-3.5); LYMPHOCYTES % (AUTO) 27.2 %; MEAN CORPUSCULAR HEMOGLOBIN 28.8 pg (27.0-31.0); MEAN CORPUSCULAR HGB CONC 33.5 g/dL (32.0-36.0); MEAN CORPUSCULAR VOLUME 85.9 fL (80.0-94.0); MONOCYTES # (AUTO) 0.6 10^3/uL (0.0-1.0); MONOCYTES % (AUTO) 8.1 %; NEUTROPHILS # (AUTO) 4.4 10^3/uL (1.5-6.6); PLT - PLATELET COUNT 256 10^3/uL (130-450); RED CELL DISTRIBUTION WIDTH 12.9 % (12.0-15.0); WHITE BLOOD COUNT 7.1 x10^3/uL (4.8-10.8)
[2022-02-08 09:17] LABS: BUN - BLOOD UREA NITROGEN 24 mg/dL (6-20); CALCIUM 9.6 mg/dL (8.5-10.3); CARBON DIOXIDE - CO2 29 mmol/L (21-32); CHLORIDE 102 mmol/L (101-111); CHOL/HDL RATIO 5.8 (<5.0); CHOLESTEROL 191 mg/dL; CREATININE 0.9 mg/dL (0.6-1.2); GFR - MDRD 85 (>89); GLUCOSE 102 mg/dL (70-100); HDL CHOLESTEROL 33 mg/dL; LDL CHOLESTEROL,CALCULATED 126 mg/dL; LDL/HDL RATIO 3.8 (<3.6); POTASSIUM 4.3 mmol/L (3.5-5.0); SODIUM 140 mmol/L (135-145); TRIGLYCERIDES 158 mg/dL; VLDL CHOLESTEROL 32 mg/dL
[2022-02-08 10:19] LABS: ESTIMATED AVERAGE GLUCOSE 117 mg/dL (70-100); HEMOGLOBIN A1c% 5.7 % (4.27-6.07)
== END 2022-02-08 08:29 | disposition home or self-care (01) ==
LOC: LAB 08:28
PROVIDERS: ATTEND Internal Medicine
DX: E78.5 Hyperlipidemia, unspecified (principal); I10 Essential (primary) hypertension; R73.01 Impaired fasting glucose; Z12.5 Encounter for screening for malignant neoplasm of prostate
CPT/HCPCS: 36415; 80048; 80061; 83036; 83721; 84153; 85025

== ENCOUNTER 2022-08-17 07:39 | Outpatient (CLI) | payer BC ==
[2022-08-17 13:13] LABS: ALBUMIN 4.3 g/dL (3.2-5.5); ALBUMIN/GLOBULIN RATIO 1.3 (1.0-2.2); ALKALINE PHOSPHATASE 69 IU/L (42-121); ALT ALANINE AMINOTRANSFERASE 30 IU/L (10-60); AST ASPARTATE AMINOTRANSFERASE 42 IU/L (10-42); BILIRUBIN,TOTAL 0.7 mg/dL (0.2-1.0); BUN - BLOOD UREA NITROGEN 23 mg/dL (6-20); CALCIUM 9.3 mg/dL (8.5-10.3); CARBON DIOXIDE - CO2 30 mmol/L (21-32); CHLORIDE 102 mmol/L (101-111); CHOLESTEROL 174 mg/dL; CREATININE 0.8 mg/dL (0.6-1.2); GFR - MDRD 97 (>89); GLUCOSE 103 mg/dL (70-100); HDL CHOLESTEROL 35 mg/dL; LDL CHOLESTEROL,CALCULATED 110 mg/dL; LDL/HDL RATIO 3.1 (<3.6); POTASSIUM 3.9 mmol/L (3.5-5.0); SODIUM 138 mmol/L (135-145); TOTAL PROTEIN 7.6 g/dL (6.7-8.2); TRIGLYCERIDES 145 mg/dL; VLDL CHOLESTEROL 29 mg/dL
[2022-08-17 13:23] LABS: ESTIMATED AVERAGE GLUCOSE 123 mg/dL (70-100); HEMOGLOBIN A1c% 5.9 % (4.27-6.07)
== END 2022-08-17 07:40 | disposition home or self-care (01) ==
LOC: LAB.N 07:39
PROVIDERS: ATTEND Internal Medicine
DX: E78.5 Hyperlipidemia, unspecified (principal); R73.01 Impaired fasting glucose
CPT/HCPCS: 36415; 80053; 80061; 83036; 83721

== ENCOUNTER 2023-03-02 13:09 | Outpatient (CLI) | payer MEDICARE ==
--- NOTE | 2023-03-02 20:26 | XRAY Report ---
PROCEDURE: Shoulder 3 View LT INDICATIONS: PAIN RADIATING TO LEFT SHOULDER TECHNIQUE: 3 views of the shoulder were acquired. COMPARISON: None. FINDINGS: Bones: No fractures or dislocations. Mild to moderate acromioclavicular joint and glenohumeral joint osteoarthritic changes are seen. No suspicious bony lesions. Visualized ribs appear intact. Soft tissues: No suspicious soft tissue calcifications. The visualized lungs are within normal limi ts. IMPRESSION: No acute bony abnormality. Mild to moderate left shoulder joint osteoarthritis. Reviewed by: Harpreet Diggs MD on 03/02/2023 8:25 PM PST Approved by: Harpreet Diggs MD on 03/02/2023 8:25 PM PST Station ID: [id number]
--- NOTE | 2023-03-02 20:27 | XRAY Report ---
PROCEDURE: Cervical Spine Comp w/Flex/Ext INDICATIONS: PAIN RADIATING TO LEFT SHOULDER TECHNIQUE: 7 views of the cervical spine were acquired. COMPARISON: None. FINDINGS: Bones: No fractures or dislocations to the T1 level. Mild degenerative endplate changes are seen at C4-5 and C5-6 levels. No suspicious bony lesions. There is normal range of motion between flexion an d extension, with preserved normal bony alignment. Oblique views shows bilateral neural foraminal cande rowing at C4-5 levels. Soft tissues: Prevertebral soft tissues are normal in thickness. IMPRESSION: 1. Mild degenerative disc disease at C4-5 and C5-6 levels. No acute fracture or dislocation. 2. Suggestion of bilateral bony foraminal stenosis at C4-5 levels seen on oblique views. 3. Normal range of motion with preserved cervical spine alignment. Reviewed by: Harpreet Diggs MD on 03/02/2023 8:26 PM PST Approved by: Harpreet Diggs MD on 03/02/2023 8:26 PM PST Station ID: [id number]
== END 2023-03-02 13:10 | disposition home or self-care (01) ==
LOC: DI 13:09
PROVIDERS: ATTEND Internal Medicine
DX: M19.012 Primary osteoarthritis, left shoulder (principal); M50.321 Other cervical disc degeneration at C4-C5 level